=== PATIENT | male | born 1955 | race Two or more races ===

== ENCOUNTER 2020-01-22 01:28 | Emergency (ER) | payer MEDICARE, MEDICAID ==
[~2020-01-22 01:28] MED LIST: AMLO-150 PO; CALC0.25 PO; CALC667C PO; CARV3.1212 PO; FERR324T5 PO; FINA5TAB4 PO; SODI650T PO
== END 2020-01-22 02:02 ==
LOC: ED 01:29
DX: Z99.2 Dependence on renal dialysis (principal); Z53.21 Procedure and treatment not carried out due to patient leaving prior to being seen by health care provider